=== PATIENT | male | born 1965 | race Caucasian/White ===

== ENCOUNTER 2022-01-20 18:31 | Inpatient (IN) | payer BC ==
[~2022-01-20] VITALS: Ht 175.3 cm; Wt 56.0 kg
[~2022-01-20 18:31] MED LIST: Alprazolam0.5 MG PO; DEXT5ER PO; Desyrel50 MG PO; FLUO10 PO; NUEDEXTA 20-101 EACH PO; Prozac20 MG PO; Xanax0.5 MG PO
[2022-01-20 19:07] LABS: BASOPHILS ABSOLUTE AUTO 0.01 K/mm3 (0.00-0.23); BASOPHILS PERCENT AUTO 0 % (0-2); EOSINOPHILS ABSOLUTE AUTO 0.02 K/mm3 (0.00-0.68); EOSINOPHILS PERCENT AUTO 0 % (0-6); Hematocrit 41.2 % (37.0-53.0); Hemoglobin 14.9 g/dL (13.5-17.5); IMMATURE GRAN ABSOLUTE AUTO 0.02 K/mm3 (0.00-0.10); IMMATURE GRAN PERCENT AUTO 0 % (0-1); LYMPHOCYTES ABSOLUTE AUTO 1.13 K/mm3 (0.84-5.20); LYMPHOCYTES PERCENT AUTO 20 % (21-46); MONOCYTES ABSOLUTE AUTO 0.41 K/mm3 (0.16-1.47); MONOCYTES PERCENT AUTO 7 % (4-13); Mean Corpuscular HGB 34.6 pg (26.0-34.0); Mean Corpuscular HGB Conc 36.2 g/dL (31.5-36.5); Mean Corpuscular Volume 96 fL (80-100); Mean Platelet Volume 9.9 fL (9.1-12.4); NEUTROPHILS ABSOLUTE AUTO 4.19 K/mm3 (1.96-9.15); NEUTROPHILS PERCENT AUTO 73 % (41-73); Platelet Count 241 K/mm3 (150-400); RDW Coefficient Variation 12.2 % (11.7-14.2); RDW Standard Deviation 43.7 fL (35.1-46.3); Red Blood Cell Count 4.31 M/mm3 (4.30-5.90); White Blood Cell Count 5.78 K/mm3 (4.00-11.30)
[2022-01-20 19:38] LABS: Albumin, Blood 3.9 g/dL (3.4-5.0); Albumin/Globulin Ratio 1.1 (0.8-1.8); Bilirubin, Total 0.8 mg/dL (0.1-1.0); Bun/Creatinine Ratio 7.4 (12.0-20.0); Calcium, Blood 9.2 mg/dL (8.5-10.1); Creatinine, Blood 1.22 mg/dL (0.60-1.20); Globulin, Blood 3.5 g/dL (2.2-4.0); Potassium, Blood 3.8 mmol/L (3.5-5.5); Total Protein, Blood 7.4 g/dL (6.4-8.2)
[2022-01-20 20:04] LABS: Magnesium, Blood 1.7 mg/dL (1.6-2.4)
[2022-01-20 20:09] LABS: Creatine Kinase MB 3.2 ng/mL (0.0-3.6); Thyroid Stimulating Hormone 2.84 uIU/mL (0.360-4.800)
[2022-01-20 20:16] LABS: International Normalized Ratio 1.04; Prothrombin Time Results 10.9 Sec (9.7-11.5)
--- NOTE | 2022-01-21 00:02 | NUR ---
ADMISSION: PATIENT IS RECIEVED FROM ER VIA WHEELCHAIR. PATIENT IS ORIENTED TO ROOM AND CALL REA. BP IS ELEVATED 208/111, PRN HYDRALAZINE IS GIVEN. TELI IS PLACE, NSR AT 69. WEAKNESS OF LUE AND LLE IS OBSERVED. PATIENT IS INSTRUCTED TO CALL FOR ASSIST OOB, BED ALARM IS ON.
[2022-01-21 04:34] LABS: Source, Urine Clean Catch
[2022-01-21 04:36] LABS: Bilirubin, Urine Neg (Neg); Blood, Urine Neg (Neg); Glucose Qualitative, Urine Neg (Neg); Ketones, Urine Neg (Neg); Leukocyte Esterase, Urine Neg (Neg); Nitrite, Urine Neg (Neg); Protein, Urine Neg (Neg); Urobilinogen, Urine NORM (Normal)
[2022-01-21 04:41] LABS: Appearance, Urine Clear (Clear); Color, Urine Yellow (P-Yellow)
[2022-01-21 05:46] LABS: BASOPHILS ABSOLUTE AUTO 0.02 K/mm3 (0.00-0.23); BASOPHILS PERCENT AUTO 0 % (0-2); EOSINOPHILS ABSOLUTE AUTO 0.05 K/mm3 (0.00-0.68); EOSINOPHILS PERCENT AUTO 1 % (0-6); Hematocrit 40.1 % (37.0-53.0); Hemoglobin 14.2 g/dL (13.5-17.5); IMMATURE GRAN ABSOLUTE AUTO 0.03 K/mm3 (0.00-0.10); IMMATURE GRAN PERCENT AUTO 1 % (0-1); LYMPHOCYTES ABSOLUTE AUTO 1.23 K/mm3 (0.84-5.20); LYMPHOCYTES PERCENT AUTO 25 % (21-46); MONOCYTES ABSOLUTE AUTO 0.44 K/mm3 (0.16-1.47); MONOCYTES PERCENT AUTO 9 % (4-13); Mean Corpuscular HGB Conc 35.4 g/dL (31.5-36.5); Mean Corpuscular Volume 96 fL (80-100); Mean Platelet Volume 10.3 fL (9.1-12.4); NEUTROPHILS ABSOLUTE AUTO 3.14 K/mm3 (1.96-9.15); NEUTROPHILS PERCENT AUTO 64 % (41-73); Platelet Count 238 K/mm3 (150-400); RDW Coefficient Variation 12.5 % (11.7-14.2); RDW Standard Deviation 43.8 fL (35.1-46.3); Red Blood Cell Count 4.18 M/mm3 (4.30-5.90); White Blood Cell Count 4.91 K/mm3 (4.00-11.30)
[2022-01-21 06:15] LABS: Albumin, Blood 3.3 g/dL (3.4-5.0); Albumin/Globulin Ratio 1.1 (0.8-1.8); Bilirubin, Total 0.6 mg/dL (0.1-1.0); Bun/Creatinine Ratio 11.7 (12.0-20.0); Creatinine, Blood 1.03 mg/dL (0.60-1.20); Globulin, Blood 2.9 g/dL (2.2-4.0); Potassium, Blood 3.7 mmol/L (3.5-5.5); Total Protein, Blood 6.2 g/dL (6.4-8.2)
--- NOTE | 2022-01-21 06:37 | NUR ---
SHIFT SUMMARY: PATIENT HAD GOOD EFFECT FRON PRN HYDRALAZINE GIVEN FOR BP OF 206/111. PATIENT WAS ASYMPTOMATIC. RECHECK ON BP WAS 177/101 AND 161/97. ALCOHOL WITHDRAWAL ASSESSMENT IS ZERO AND ZERO. NO EVENTS ON TELI. LEFT UPPER AND LOWERE EXT. WEAKNESS PERSISTS. UA WAS SENT PER MD ORDER.
--- NOTE | 2022-01-21 16:08 | NUR ---
SHIFT SUMMARY PATIENT IS ALERT AND ORIENTED. PATIENT IS ADMITTED FOR A STROKE AND HAS LEFT SIDED DEFICITS. PATIENT HAS NOT COMPLAINED OF SOB, NAUSEA, PAIN OR SOB THIS SHIFT. PATIENT IS PLEASENT AND COOPERATIVE WITH CARE. PATIENT HAD MULTIPLE TESTS AND THOSE ARE PENDING. NO ACUTE EVENTS THIS SHIFT. VITAL SIGNS REVIEWED. BED IN LOCKED AND LOWEST POSITION. CALL LIGHT IN PLACE.
--- NOTE | 2022-01-22 06:02 | NUR ---
SHIFT SUMMARY NO ACUTE CHANGES OVERNIGHT. PT SLEPT GOOD. VSS. DENIES CP AND SOB. ON ROOM AIR. TELE: NSR AT 67. VOIDING IN URINAL. SALINE LOCKED. TOLERATING PO INTAKE. DENIES NAUSEA AND VOMITING. PT HAS NO FACIAL DROOPING, NO NUMBNESS AND NO TINGLING SENSATION. PT HAS LUE AND LLE WEAKNESS. AOX4. COOPERATIVE WITH CARE. REPORTS VERY MILD H/A AT THE BEGINNING OF SHIFT. CALL LIGHT WITHIN REACH. WILL CONTINUE TO MONITOR AND WILL PROVIDE REPORT TO ONCOMING NURSE.
[2022-01-22] MEDS ORDERED: ASPI81CH PO (10:38)
[2022-01-22] MEDS ORDERED: ATOR40TA PO (10:39)
[2022-01-22] MEDS ORDERED: LISI20 PO (10:39)
[2022-01-22] MEDS ORDERED: PLAVIX75 MG PO (10:48)
--- NOTE | 2022-01-22 15:38 | NUR ---
DISCHARGE SUMMARY PATIENT IS ALERT AND ORIENTED. PATIENT IS PLEASENT AND COOPERATIVE WITH CARE. PATIENT WAS ADMITTED FOR A STROKE WITH LEFT SIDE WEAKNESS. PATIENT WAS READ DISCHARGE PAPERWORK AND WAS TRANSPORTED HOME BY IN PATIENTS CAR. NO ACUTE EVENTS THIS SHIFT.
== END 2022-01-22 15:15 | disposition home health service (06) | DRG 65 ==
LOC: ER 18:31 → MEDS 21:45 → ER 22:47 → MEDS 23:22
PROVIDERS: Physician Assistant; Student in an Organized Health Care Education/Training Program; ADMIT Internal Medicine
DX: I63.81 Other cerebral infarction due to occlusion or stenosis of small artery (principal); G81.92 Hemiplegia, unspecified affecting left dominant side; I16.1 Hypertensive emergency; I10 Essential (primary) hypertension; R29.702 NIHSS score 2; F17.210 Nicotine dependence, cigarettes, uncomplicated; Z79.899 Other long term (current) drug therapy
CPT/HCPCS: 36415; 70450; 70496; 70551; 80053; 81003; 82550; 82553; 83735; 84443; 85025; 85610; 93005; 93010; 93306; 93880; 97110; 97161; 97165; 97530; 97535; 99285-25; A9270; J0360; J1650; J7030; Q9967

== ENCOUNTER 2022-03-30 06:01 | Day surgery (SDC) | payer BC ==
[~2022-03-30 06:01] MED LIST changes: +ASPI81CH PO; +ATOR40TA PO; +LISI20 PO; +PLAVIX75 MG PO
--- NOTE | 2022-03-30 07:32 | NUR ---
PT AWAKE AND VERBALIZING WELL.
== END 2022-03-30 22:52 | disposition home or self-care (01) ==
LOC: MHTC 06:01
DX: I63.81 Other cerebral infarction due to occlusion or stenosis of small artery (principal); G81.94 Hemiplegia, unspecified affecting left nondominant side; I10 Essential (primary) hypertension; I48.91 Unspecified atrial fibrillation; I70.0 Atherosclerosis of aorta; Z79.82 Long term (current) use of aspirin; Z87.891 Personal history of nicotine dependence
CPT/HCPCS: 93312; 93325; A9270; J2704; J7030

== ENCOUNTER → 2022-08-14 | Outpatient (CLI) | payer BC ==
[2022-08-14 17:14] LABS: Albumin, Blood 4.3 g/dL (3.4-5.0); Albumin/Globulin Ratio 1.3 (0.8-1.8); Bilirubin, Total 1.4 mg/dL (0.1-1.0); Bun/Creatinine Ratio 11.1 (12.0-20.0); Calcium, Blood 9.6 mg/dL (8.5-10.1); Creatinine, Blood 0.99 mg/dL (0.60-1.20); Globulin, Blood 3.3 g/dL (2.2-4.0); Potassium, Blood 4.3 mmol/L (3.5-5.5); Total Protein, Blood 7.6 g/dL (6.4-8.2)
== END | disposition home or self-care (01) ==
LOC: LAB 14:34 → LAB SHORT 14:34
PROVIDERS: Student in an Organized Health Care Education/Training Program
DX: Z01.30 Encounter for examination of blood pressure without abnormal findings (principal); I63.9 Cerebral infarction, unspecified
CPT/HCPCS: 80053

== ENCOUNTER → 2022-10-23 | Outpatient (CLI) | payer BC ==
[2022-10-23 17:51] LABS: Bun/Creatinine Ratio 14.4 (12.0-20.0); Calcium, Blood 9.7 mg/dL (8.5-10.1); Creatinine, Blood 0.97 mg/dL (0.60-1.20); Potassium, Blood 4.6 mmol/L (3.5-5.5); Thyroid Stimulating Hormone 0.906 uIU/mL (0.360-4.800)
[2022-10-23 21:59] LABS: Osmolality, Urine 324 mos/kg (15-1400)
[2022-10-23 22:11] LABS: Sodium, Urine, Random 53 mmol/L (20-110)
== END | disposition home or self-care (01) ==
LOC: LAB 15:41 → LAB SHORT 15:41
PROVIDERS: Student in an Organized Health Care Education/Training Program
DX: E87.1 Hypo-osmolality and hyponatremia (principal)
CPT/HCPCS: 80048; 83880; 83935; 84300; 84443

== ENCOUNTER → 2022-10-30 | Outpatient (CLI) | payer BC ==
[2022-10-30 17:58] LABS: Bun/Creatinine Ratio 8.4 (12.0-20.0); Calcium, Blood 9.5 mg/dL (8.5-10.1); Creatinine, Blood 1.07 mg/dL (0.60-1.20); Potassium, Blood 4.4 mmol/L (3.5-5.5)
== END | disposition home or self-care (01) ==
LOC: LAB SHORT 15:43 → LAB 15:43
PROVIDERS: Student in an Organized Health Care Education/Training Program
DX: E87.1 Hypo-osmolality and hyponatremia (principal)
CPT/HCPCS: 80048; 83930; 84133

== ENCOUNTER → 2023-02-26 | Outpatient (CLI) | payer BC ==
[2023-02-26 20:13] LABS: CHOL/HDL RATIO 1.5; Cholesterol 150 mg/dL (50-200); HDL Cholesterol 100 mg/dL (>39); LDL/HDL RATIO 0.4; Low Density Lipoprotein Chol 36 mg/dL (0-110); Triglycerides 68 mg/dL (30-160); Very Low Density Lipoprot Chol 13 mg/dL (6-32)
== END | disposition home or self-care (01) ==
LOC: LAB SHORT 17:41 → LAB 17:41
PROVIDERS: Family Medicine
DX: I63.9 Cerebral infarction, unspecified (principal)
CPT/HCPCS: 80061

== ENCOUNTER 2024-03-28 08:00 | Inpatient (IN) | payer BC ==
[~2024-03-28] VITALS: Ht 172.7 cm; Wt 53.7 kg
[2024-03-28] VITALS (15 sets, daily range): BP systolic 114–125; BP diastolic 80–95
[2024-03-28 08:21] LABS: BASOPHILS ABSOLUTE AUTO 0.01 K/mm3 (0.00-0.23); BASOPHILS PERCENT AUTO 0 % (0-2); EOSINOPHILS ABSOLUTE AUTO 0.01 K/mm3 (0.00-0.68); EOSINOPHILS PERCENT AUTO 0 % (0-6); Hematocrit 28.3 % (37.0-53.0); IMMATURE GRAN ABSOLUTE AUTO 0.01 K/mm3 (0.00-0.10); IMMATURE GRAN PERCENT AUTO 0 % (0-1); LYMPHOCYTES ABSOLUTE AUTO 0.39 K/mm3 (0.84-5.20); LYMPHOCYTES PERCENT AUTO 7 % (21-46); MONOCYTES PERCENT AUTO 2 % (4-13); Mean Corpuscular HGB 36.4 pg (26.0-34.0); Mean Corpuscular HGB Conc 35.3 g/dL (31.5-36.5); Mean Corpuscular Volume 103 fL (80-100); Mean Platelet Volume 9.7 fL (9.1-12.4); NEUTROPHILS ABSOLUTE AUTO 4.83 K/mm3 (1.96-9.15); NEUTROPHILS PERCENT AUTO 90 % (41-73); Platelet Count 285 K/mm3 (150-400); RDW Coefficient Variation 12.2 % (11.7-14.2); RDW Standard Deviation 45.7 fL (35.1-46.3); Red Blood Cell Count 2.75 M/mm3 (4.30-5.90); White Blood Cell Count 5.35 K/mm3 (4.00-11.30)
[2024-03-28 08:34] LABS: Albumin, Blood 2.9 g/dL (3.4-5.0); Albumin/Globulin Ratio 1.1 (0.8-1.8); Bilirubin, Total 0.8 mg/dL (0.1-1.0); Bun/Creatinine Ratio 10.2 (12.0-20.0); Calcium, Blood 7.6 mg/dL (8.5-10.1); Creatinine, Blood 1.28 mg/dL (0.60-1.20); Globulin, Blood 2.6 g/dL (2.2-4.0); Potassium, Blood 3.1 mmol/L (3.5-5.5); Total Protein, Blood 5.5 g/dL (6.4-8.2)
[2024-03-28] MEDS ORDERED: Piperacillin/Tazobactam Sod 3.375 GM in NS 100 ML IV ONE ×2 (09:40→12:55)
[2024-03-28 09:46] LABS: Source, Urine Voided
[2024-03-28 10:05] LABS: Bilirubin, Urine Neg (Neg); Blood, Urine Neg (Neg); Glucose Qualitative, Urine Neg (Neg); Ketones, Urine 1+ (Neg); Leukocyte Esterase, Urine Neg (Neg); Nitrite, Urine Neg (Neg); Protein, Urine 2+ (Neg); Specific Gravity, Urine 1.015 (1.003-1.022); Urobilinogen, Urine NORM (Normal)
[2024-03-28] MEDS ORDERED: Morphine Sulfate 4 MG/1 ML Injection IV ONE (10:05)
[2024-03-28] MEDS ORDERED: Ondansetron HCl 2 MG / ML 2ML Vial IV ONE (10:05)
[2024-03-28] MEDS ORDERED: Lactated Ringer's 1,000 ML IV SCH ×2 (10:15→14:20)
[2024-03-28 10:22] LABS: Appearance, Urine Clear (Clear); Color, Urine Yellow (P-Yellow)
[2024-03-28 10:24] LABS: Bacteria Rare /hpf; Red Blood Cells, Urine 0-2 /hpf (0-2); Squamous Epithelial Cells Rare /hpf (Few); White Blood Cells, Urine 0-2 /hpf (0-5)
[2024-03-28] MEDS ORDERED: FLU VACC TS2024-25(6MOS UP)/PF 45 MCG/0.5 ML SYRINGE IM SCH (10:30)
[2024-03-28] MEDS ORDERED: FentaNYL Citrate 50 MCG/ML 2 ML Injection ONE (10:34)
[2024-03-28] MEDS ORDERED: Ondansetron HCl 2 MG / ML 2ML Vial IV PRN (10:35)
[2024-03-28] MEDS ORDERED: Dexamethasone Sod Phos 10 MG/ML 1ML VIAL ONE (10:36)
[2024-03-28] MEDS ORDERED: Rocuronium Bromide 10 MG/ML 5ML Injection IV ONE ×2 (10:36→13:21)
[2024-03-28] MEDS ORDERED: Ondansetron HCl 2 MG / ML 2ML Vial ONE (10:36)
[2024-03-28] MEDS ORDERED: NS 1,000 ML IV SCH (11:00)
--- NOTE | 2024-03-28 11:53 | NUR ---
History, Chart, Medications and Allergies reviewed before start of procedure. Pre-Op teaching done. Pt verbalizes understanding. PT STATES HE HAS BEEN NPO SINCE 03/27 AT 2230. 2ND IV PLACED BY THIS RN PER DR. GUERRERO REQUEST. PINK TOP X2 DRAWN AND SENT TO LAB FOR BOTH T&S AND T&C.
--- NOTE | 2024-03-28 11:55 | NUR ---
PT DOES NOT HAVE ANY BELONGINGS ON [facility]. ALL BELONGINGS WERE GIVEN TO DAUGHTER AT BS.
--- NOTE | 2024-03-28 12:12 | NUR ---
SURGEON AND ANES AWARE OF K+ LEVEL. NO ORDERS GIVEN AT THIS TIME.
[2024-03-28] MEDS ORDERED: Midazolam HCl 1MG / ML 2ML Vial ONE (12:13)
[2024-03-28] MEDS ORDERED: Etomidate 2MG / ML 10ML Vial ONE (12:14)
[2024-03-28] MEDS ORDERED: propofoL 20 ML IV ONE (12:15)
[2024-03-28] MEDS ORDERED: ePHEDrine Sulfate 50 MG/ML 1ML Injection ONE (12:46)
--- NOTE | 2024-03-28 13:09 | NUR ---
03/28/24 1309 Jacinta Cisse RECTUS BLOCK PERFORMED BY DR. BARKSDALE PRIOR TO PROCEDURE.
[2024-03-28] MEDS ORDERED: Sugammadex Sodium 200 MG/2ML SDV (100 MG/ML) ONE (13:24)
[2024-03-28] MEDS ORDERED: Bupivacaine 0.5% Inj 10 ML Vial ONE (13:51)
[2024-03-28] MEDS ORDERED: Pantoprazole Sodium 40 MG in NS 50 ML IV SCH (13:55)
[2024-03-28] MEDS ORDERED: Pantoprazole Sodium 40 MG Injection IV ONE (13:55)
[2024-03-28] MEDS ORDERED: ChlordiazePOXIDE 25 MG Cap PO PRN (14:50)
[2024-03-28] MEDS ORDERED: LORazepam 2 MG/ML 1ML Injection IV PRN (14:50)
--- NOTE | 2024-03-28 15:30 | NUR ---
PT ARRIVED TO THE ROOM FROM PACU AT APPROXIMATELY 1515. PT DROWSY BUT WAKES WHEN SPOKEN TO AND IS ABLE TO MOVE ALL EXTREMITIES. PT PROVIDED WITH CALL LIGHT AND EDUCATED TO USE. PT'S FAMILY IS AT THE BEDSIDE FOR SUPPORT. LULI DRESSING PRESENT TO MIDLINE INCISION, FUNCTIONING PROPERLY. CONSUELO DRAIN TO BULB SUCTION WITH SEROSANGUINOUS DRAINAGE OUT.
[2024-03-28] MEDS ORDERED: FentaNYL Citrate 50 MCG/ML 2 ML Injection IV PRN (15:40)
[2024-03-28] MEDS ORDERED: Potassium Chl 20MEQ/Water100ML 100 ML IV SCH (15:55)
[2024-03-28] MEDS ORDERED: Piperacillin/Tazobactam Sod 3.375 GM in NS 100 ML IV SCH ×2 (16:00→20:00)
[2024-03-28] MEDS ORDERED: NS 250 ML IV PRN (16:10)
--- NOTE | 2024-03-28 18:13 | NUR ---
SHIFT SUMMARY PT IS POD#0. PAIN HAS BEEN MANAGED WITH REST. PAIN DOES INCREASE SOME WITH MOVEMENT BUT PT HAS BEEN VERY DROWSY POST OP. PT ON CONTINUOUS PULSE OX, HE REMAINS ON RA, RESP RATE/EFFORT EVEN AND UNLABORED. PT WAKES AND RESPONDS APPROPRIATELY WHEN SPOKEN TO. PT HAD CRITICAL HIGH LACTIC, DR RUIZ NOTIFIED. CALL LIGHT WITHIN REACH.
[2024-03-28] MEDS ORDERED: Lactobacil 2-S.Thermo-Bifido 1 1 Cap PO SCH (21:00)
--- NOTE | 2024-03-29 04:34 | NUR ---
SHIFT SUMMARY POD 1 EX LAP PT ABLE TO REST T/O SHIFT. PAIN MANAGED PER EMAR. PT REMAINS NPO AFTER SURGERY, VOIDING. LULI DRESSING TO MIDLINE IS C/D/I. CONSUELO DRAIN TO LLQ DRAINING SS FLUID. PT REPORTS NOT PASSING ANY GAS AT THIS TIME, STATES HE IS BURPING SOME. PT HAS NOT BEEN OOB YET. VSS. NO OTHER CONCERNS AT THIS TIME, CALL LIGHT WITHIN REACH.
[2024-03-29 04:40] VITALS: BP 116/80
[2024-03-29 05:04] LABS: BASOPHILS ABSOLUTE AUTO 0.04 K/mm3 (0.00-0.23); BASOPHILS PERCENT AUTO 0 % (0-2); EOSINOPHILS PERCENT AUTO 0 % (0-6); Hematocrit 33.8 % (37.0-53.0); Hemoglobin 12.1 g/dL (13.5-17.5); IMMATURE GRAN ABSOLUTE AUTO 0.14 K/mm3 (0.00-0.10); IMMATURE GRAN PERCENT AUTO 1 % (0-1); LYMPHOCYTES ABSOLUTE AUTO 0.45 K/mm3 (0.84-5.20); LYMPHOCYTES PERCENT AUTO 3 % (21-46); MONOCYTES PERCENT AUTO 3 % (4-13); Mean Corpuscular HGB 36.2 pg (26.0-34.0); Mean Corpuscular HGB Conc 35.8 g/dL (31.5-36.5); Mean Corpuscular Volume 101 fL (80-100); Mean Platelet Volume 9.7 fL (9.1-12.4); NEUTROPHILS ABSOLUTE AUTO 15.46 K/mm3 (1.96-9.15); NEUTROPHILS PERCENT AUTO 93 % (41-73); Platelet Count 301 K/mm3 (150-400); RDW Coefficient Variation 12.5 % (11.7-14.2); RDW Standard Deviation 47.1 fL (35.1-46.3); Red Blood Cell Count 3.34 M/mm3 (4.30-5.90); White Blood Cell Count 16.59 K/mm3 (4.00-11.30)
[2024-03-29 06:13] LABS: Albumin, Blood 2.3 g/dL (3.4-5.0); Albumin/Globulin Ratio 0.7 (0.8-1.8); Bilirubin, Total 1.2 mg/dL (0.1-1.0); Bun/Creatinine Ratio 12.8 (12.0-20.0); Calcium, Blood 8.3 mg/dL (8.5-10.1); Creatinine, Blood 1.25 mg/dL (0.60-1.20); Globulin, Blood 3.2 g/dL (2.2-4.0); Potassium, Blood 5.3 mmol/L (3.5-5.5); Total Protein, Blood 5.5 g/dL (6.4-8.2)
[2024-03-29 08:03] VITALS: BP 112/75
[2024-03-29] MEDS ORDERED: Atorvastatin 40 MG Tab PO SCH (09:00)
[2024-03-29] MEDS ORDERED: Aspirin 81 MG Chew PO SCH (09:00)
[2024-03-29] MEDS ORDERED: Multivitamins 1 Tab PO SCH (09:00)
[2024-03-29] MEDS ORDERED: Lisinopril 20 MG Tab PO SCH (09:00)
[2024-03-29] MEDS ORDERED: Folic Acid 1 MG TAB PO SCH (09:00)
[2024-03-29] MEDS ORDERED: Thiamine HCl 100 MG Tab PO SCH (09:00)
[2024-03-29 14:46] VITALS: BP 107/75
[2024-03-29] MEDS ORDERED: Pantoprazole Sodium 40 MG Injection IV SCH (16:30)
--- NOTE | 2024-03-29 18:47 | NUR ---
SUMMARY: PT IS POD1 EX LAP WITH PERF ULCER REPAIR. A/O, VSS. SURGICAL SITE WNL. PT MEDICATED FOR PAIN PRN. PT ABLE TO AMBULATE IN ROOM AND SAT UP IN CHAIR. PROTONIX DRIP DC'D AND PT RECEIVING IV PUSH PROTONIX. CONTINUE NPO UNTIL TOMORROW. NO ACUTE SAFETY CONCERNS, PT USING CALL LIGHT
[2024-03-29 19:32] VITALS: BP 135/79
[2024-03-30] VITALS (22 sets, daily range): BP systolic 131–164; BP diastolic 83–110
--- NOTE | 2024-03-30 05:21 | NUR ---
SHIFT SUMMARY POD 2 EX LAP W/ GRAHM PATCH PT RESTED DURING THE NIGHT. PAIN MANAGED PER EMAR. PT REMAINS NPO. PT WILL BE GETTING UPPER SCOPE DONE TODAY. LULI DRESSING TO MIDLINE C/D/I. CONSUELO OUTPUTTING SS FLUID. PT REPORTS NOT HAVING ANY GAS. VOIDING WELL. VSS. NO OTHER CONCERNS AT THIS TIME, CALL LIGHT WITHIN REACH
[2024-03-30 05:39] LABS: Hematocrit 29.8 % (37.0-53.0); Hemoglobin 10.6 g/dL (13.5-17.5); Mean Corpuscular HGB 35.8 pg (26.0-34.0); Mean Corpuscular HGB Conc 35.6 g/dL (31.5-36.5); Mean Corpuscular Volume 101 fL (80-100); Mean Platelet Volume 9.6 fL (9.1-12.4); Platelet Count 241 K/mm3 (150-400); RDW Coefficient Variation 12.3 % (11.7-14.2); RDW Standard Deviation 45.1 fL (35.1-46.3); Red Blood Cell Count 2.96 M/mm3 (4.30-5.90); White Blood Cell Count 11.17 K/mm3 (4.00-11.30)
[2024-03-30 07:10] LABS: Bun/Creatinine Ratio 12.9 (12.0-20.0); Calcium, Blood 9.4 mg/dL (8.5-10.1); Creatinine, Blood 1.16 mg/dL (0.60-1.20); Potassium, Blood 4.4 mmol/L (3.5-5.5)
[2024-03-30] MEDS ORDERED: Aspirin 81 MG Chew PO SCH (16:00)
--- NOTE | 2024-03-30 16:00 | NUR ---
TRACKMAN ATTEMPTED TO ASSIST PT W/ AMBULATING, TRACKMAN REPORTED TO THIS NURSE THAT PT SUDDENLY FELT WEAK, DIZZY, AND NAUSEOUS. PT ASSISTED BACK TO BED. O2 SATS 82-86% AT THIS TIME ON RA, CONT BIOX IN PLACE. PLACED PT ON 3L OF O2 W/ NO CHANGE IN O2 SATS, INCREASED TO 4L, O2 SATS 92%. PT NOW MAINTAINING 92% ON 3L NC AND COMPLAINING OF SOB BUT DENIES CHEST PAIN. PT STATES HE FEELS LIKE HE "CANNOT TAKE A DEEP BREATH". NOTIFIED DR. MARCOS OF CHANGE IN PT STATUS, DR. MARCOS TO COME SEE PT AND PUT IN ORDERS. PT INSTRUCTED TO CALL W/ ANY CHANGES.
[2024-03-30] MEDS ORDERED: Lactated Ringer's 500 ML IV ONE (16:55)
--- NOTE | 2024-03-30 16:55 | NUR ---
DR. MARCOS ARRIVED AT BEDSIDE TO ASSESS PT, ORDER RECIEVED FOR LR BOLUS AND DR TO PUT IN ORDER FOR CHEST CT.
[2024-03-30 17:28] LABS: BASOPHILS ABSOLUTE AUTO 0.02 K/mm3 (0.00-0.23); BASOPHILS PERCENT AUTO 0 % (0-2); EOSINOPHILS ABSOLUTE AUTO 0.01 K/mm3 (0.00-0.68); EOSINOPHILS PERCENT AUTO 0 % (0-6); Hematocrit 40.4 % (37.0-53.0); Hemoglobin 14.6 g/dL (13.5-17.5); IMMATURE GRAN ABSOLUTE AUTO 0.11 K/mm3 (0.00-0.10); IMMATURE GRAN PERCENT AUTO 1 % (0-1); LYMPHOCYTES ABSOLUTE AUTO 0.74 K/mm3 (0.84-5.20); LYMPHOCYTES PERCENT AUTO 4 % (21-46); MONOCYTES PERCENT AUTO 4 % (4-13); Mean Corpuscular HGB 35.6 pg (26.0-34.0); Mean Corpuscular HGB Conc 36.1 g/dL (31.5-36.5); Mean Corpuscular Volume 99 fL (80-100); Mean Platelet Volume 9.7 fL (9.1-12.4); NEUTROPHILS ABSOLUTE AUTO 17.89 K/mm3 (1.96-9.15); NEUTROPHILS PERCENT AUTO 92 % (41-73); Platelet Count 363 K/mm3 (150-400); RDW Coefficient Variation 12.2 % (11.7-14.2); White Blood Cell Count 19.47 K/mm3 (4.00-11.30)
--- NOTE | 2024-03-30 18:30 | NUR ---
CALL RECIEVED FROM [employer] NOTIFYING THIS RN THAT [address] [facility] ASSOCIATE ENTERTAINMENT EDITOR INFORMED, WHILE I ASSESSED PT FOR CHEST PAIN AND PRESSURE. PT DENIES CHEST PAIN BUT DOES REPORT SOME CHEST PRESSURE. VITAL SIGNS TAKEN AT THIS TIME, BLOOD PRESSURE ELEVATED W/ SYSTOLIC IN THE 150'S AND DIASTOLIC IN THE LOW 100'S, PT TACHY W/ HR OF 100-110. O2 SATS 70-8O%, NRB 15L APPLIED, 02 SATS NOW 92-99%. PT IS FULLY RESPONSIVE. EKG TAKEN WHICH SHOWED ST ELEVATION. CHARGE NURSE NOTIFIED DR. MARCOS WHO CONTACTED DR. SHERIFF TO TAKE OVER CARE OF PT. DR. SHERIFF AT BEDSIDE, PT BEGAN THROWING UP GREEN BILE. REFER TO EMAR FOR MEDICATIONS GIVEN AND ORDERS RECIEVED AT THIS TIME. VITALS TAKEN INTERMITTENTLY W/ PT REMAINING HYPERTENSIVE. PT TRANSFERED TO EDGING SUPERVISOR W/ FAMILY MEMBERS AT BEDSIDE.
[2024-03-30] MEDS ORDERED: Lactated Ringer's 1,000 ML IV SCH (18:40)
--- NOTE | 2024-03-30 18:41 | NUR ---
TELE CALLED AND REPORTED ST E[facility]. PRIMARY RN IN ROOM TO ASSESS PT AND OBTAIN VS. THIS RN CONTACTED DR. MARCOS AND OBTAINED AN EKG. DR. MARCOS NOTIFIED OF PT SYMPTOMS AND THAT EKG WAS COMPLETE. DR. MARCOS REPORTED HE WOULD CALL DR. SHERIFF TO COME ASSESS PT AT BEDSIDE.
[2024-03-30] MEDS ORDERED: Aspirin 325 MG Tab PO ONE (19:05)
[2024-03-30] MEDS ORDERED: Heparin Sodium 5000 Units/ML 1ML MDV IV ONE (19:05)
[2024-03-30] MEDS ORDERED: Heparin Sodium 1000 Units/ML 10ML MDV ONE ×2 (19:16→19:20)
[2024-03-30] MEDS ORDERED: Verapamil HCL 2.5 MG/ML 2ML Injection ONE (19:16)
[2024-03-30] MEDS ORDERED: Nitroglycerin 2 MG/20 ML BTL ONE (19:17)
[2024-03-30] MEDS ORDERED: NS 250 ML IV ONE (19:17)
[2024-03-30] MEDS ORDERED: NS 1,000 ML IV ONE ×2 (19:17→19:20)
[2024-03-30] MEDS ORDERED: FentaNYL Citrate 50 MCG/ML 2 ML Injection ONE (19:20)
[2024-03-30] MEDS ORDERED: Midazolam HCl 1MG / ML 2ML Vial ONE (19:20)
--- NOTE | 2024-03-30 19:33 | NUR ---
PT TO AVIATION PROJECT ENGINEER AT THIS TIME
[2024-03-30 19:38] LABS: Anti-Xa UFH, PHA Monitoring <0.10 IU/mL; International Normalized Ratio 0.96; Prothrombin Time Results 10.3 Sec (9.7-11.5)
--- NOTE | 2024-03-30 20:29 | NUR ---
SHIFT SUMMARY PT IS POD2 FOR EX LAP R/T PERF ULCER. ASSUMED CARE OF PT AT 1430 AFTER RECIEVING REPORT FROM FAMILIA LOMBARDI. SHORTLY AFTER RECIEVING REPORT, AIR QUALITY SPECIALIST ATTEMPTED TO AMBULATE PT, SEE NOTE. CONSUELO DRAIN DRAINING SS FLUID, MILDINE LULI C/D/I BESIDES TWO SCANT SPOTS OF DRAINAGE ON DRESSING. PT WAS NOT TOLERATING PO CL DIET, NAUSEOUS, MEDICATED PER EMAR. PT ALSO MEDICATED FOR PAIN W/ IV FENTANYL PER EMAR. PT STATING HE "DOES NOT FEEL GOOD" OVERALL, PT REQUIRING 3LNC TO MAINTAIN SATS >90% AFTER BEING ON RA PRIOR. SEE OTHER NOTES REGARDING CARDIAC EVENT. PT TRANSFERED TO PRODUCTION DESIGNER, REPORT GIVEN TO SUPERVISOR SEAMING.
[2024-03-31] VITALS (20 sets, daily range): BP systolic 152–168; BP diastolic 96–119
[2024-03-31 03:24] LABS: BASOPHILS ABSOLUTE AUTO 0.02 K/mm3 (0.00-0.23); BASOPHILS PERCENT AUTO 0 % (0-2); EOSINOPHILS ABSOLUTE AUTO 0.01 K/mm3 (0.00-0.68); EOSINOPHILS PERCENT AUTO 0 % (0-6); Hematocrit 40.5 % (37.0-53.0); Hemoglobin 14.8 g/dL (13.5-17.5); IMMATURE GRAN PERCENT AUTO 1 % (0-1); LYMPHOCYTES ABSOLUTE AUTO 0.55 K/mm3 (0.84-5.20); LYMPHOCYTES PERCENT AUTO 3 % (21-46); MONOCYTES ABSOLUTE AUTO 0.65 K/mm3 (0.16-1.47); MONOCYTES PERCENT AUTO 4 % (4-13); Mean Corpuscular HGB 35.7 pg (26.0-34.0); Mean Corpuscular HGB Conc 36.5 g/dL (31.5-36.5); Mean Corpuscular Volume 98 fL (80-100); Mean Platelet Volume 9.4 fL (9.1-12.4); NEUTROPHILS ABSOLUTE AUTO 15.21 K/mm3 (1.96-9.15); NEUTROPHILS PERCENT AUTO 92 % (41-73); Platelet Count 381 K/mm3 (150-400); RDW Coefficient Variation 12.1 % (11.7-14.2); RDW Standard Deviation 43.9 fL (35.1-46.3); Red Blood Cell Count 4.14 M/mm3 (4.30-5.90); White Blood Cell Count 16.54 K/mm3 (4.00-11.30)
[2024-03-31] MEDS ORDERED: Metoclopramide HCl 5MG / ML 2ML Vial IV ONE (03:30)
[2024-03-31 03:52] LABS: Albumin, Blood 2.6 g/dL (3.4-5.0); Albumin/Globulin Ratio 0.6 (0.8-1.8); Bilirubin, Total 0.9 mg/dL (0.1-1.0); Bun/Creatinine Ratio 18.9 (12.0-20.0); Calcium, Blood 9.5 mg/dL (8.5-10.1); Creatinine, Blood 0.95 mg/dL (0.60-1.20); Globulin, Blood 4.1 g/dL (2.2-4.0); Potassium, Blood 3.8 mmol/L (3.5-5.5); Total Protein, Blood 6.7 g/dL (6.4-8.2)
--- NOTE | 2024-03-31 04:13 | NUR ---
SHIFT SUMMARY RECEIVED PT FROM TRANSFER KNITTER AT 2024 VIA BED, PT AWAKE AND ALERT ORIENTED X4, FOLLOWS COMMANDS, O2 AT 3LPM NC, DECREASED TO 2 LPM AT THIS TIME, SR-ST 90-108 BPM, SBP 150-160S, DBP 100-110S, TR BAND TO RIGHT RADIAL IN PLACE , 1 -2 ML REMOVED EVERY 15 MIN UNTIL 0ML, NO BLEEDING, BRUISING OR HEMATOMA NOTED, TR BAND REMOVED AT 0300 AND 2X2 PLACED OVER INSERTION SITE AND COVERED WITH SMALL TEGADERM. PT VOIDS CHLOE URINE WITHOUT DIFFICULTY IN URINAL. PT NAUSEATED AND VOMITING SMALL AMOUNT OF CLEAR BILE IN EMESIS BAG. MEDICATED WITH ZOFRAN IVP PER PRN ORDERS X1 AND ONE TIME DOSE OF REGLAN 10 MG. FENTANYL GIVEN X1 PER PT C/O PAIN, TOLERATED WELL
--- NOTE | 2024-03-31 04:56 | NUR ---
PT TRANSFERED FROM ICU TO PCU. PT DENIES ANY PAIN. PT CURRENT CIWA 0. PT RESTING COMFORTABLY ON 2L NC. PT AOX4 WITH CALL LIGHT.
--- NOTE | 2024-03-31 06:15 | NUR ---
PT STATES HE CAN CALL HIS FAMILY TO NOTIFY THEM THAT HE MOVED ROOMS.
[2024-03-31] MEDS ORDERED: Atorvastatin 40 MG Tab PO SCH (09:00)
[2024-03-31] MEDS ORDERED: Lisinopril 20 MG Tab PO SCH (09:00)
[2024-03-31] MEDS ORDERED: HYDROcodone 5-APAP 325 TAB PO PRN (16:00)
[2024-03-31] MEDS ORDERED: Piperacillin/Tazobactam Sod 3.375 GM in NS 100 ML IV SCH (16:00)
[2024-03-31] MEDS ORDERED: Lactated Ringer's 1,000 ML IV SCH (16:00)
--- NOTE | 2024-03-31 18:55 | NUR ---
LULI DRESSING IS CLEAN AND INTACT WITH SMALL AMOUNT OF DRAINAGE NOTED TO DRESSING. HE IS ALERT ANSWERING QUESTIONS APPROPRIATELY. DENIES CP OR SOB. HE REMAINS ON 2L O2 VIA NASAL CANNULA. VSS. PT CHANGED TO CLEAR LIQUID DIET FURING THIS SIHIFT.
--- NOTE | 2024-03-31 19:34 | NUR ---
ASSUMPTION OF CARE NOTE ASSUMED CARE OF PT AT 1900. PT ALERT AND ORIENTED x4. DENIES PAIN. TACHY HR @ 100'S. HTN W/ BP OF 159/102. SPO2 94% ON 1L VIA NC. ABD SURGICAL DRESSINGS AND CONSUELO DRAIN ARE INTACT. SCANT DRAINAGE PRESENT ON MIDLINE ABD DRESSING.
[2024-03-31] MEDS ORDERED: HydrALAZINE HCl 20 MG / ML 1ML Vial IV ONE (21:05)
[2024-04-01 01:58] VITALS: BP 162/95
[2024-04-01 03:39] VITALS: BP 152/103
[2024-04-01 05:28] LABS: BASOPHILS ABSOLUTE AUTO 0.02 K/mm3 (0.00-0.23); BASOPHILS PERCENT AUTO 0 % (0-2); EOSINOPHILS ABSOLUTE AUTO 0.01 K/mm3 (0.00-0.68); EOSINOPHILS PERCENT AUTO 0 % (0-6); Hematocrit 38.1 % (37.0-53.0); Hemoglobin 13.7 g/dL (13.5-17.5); IMMATURE GRAN ABSOLUTE AUTO 0.14 K/mm3 (0.00-0.10); IMMATURE GRAN PERCENT AUTO 1 % (0-1); LYMPHOCYTES ABSOLUTE AUTO 0.67 K/mm3 (0.84-5.20); LYMPHOCYTES PERCENT AUTO 4 % (21-46); MONOCYTES ABSOLUTE AUTO 1.01 K/mm3 (0.16-1.47); MONOCYTES PERCENT AUTO 6 % (4-13); Mean Corpuscular HGB 35.7 pg (26.0-34.0); Mean Corpuscular Volume 99 fL (80-100); Mean Platelet Volume 9.4 fL (9.1-12.4); NEUTROPHILS ABSOLUTE AUTO 14.03 K/mm3 (1.96-9.15); NEUTROPHILS PERCENT AUTO 88 % (41-73); Platelet Count 352 K/mm3 (150-400); Red Blood Cell Count 3.84 M/mm3 (4.30-5.90); White Blood Cell Count 15.88 K/mm3 (4.00-11.30)
[2024-04-01 05:58] LABS: Albumin, Blood 2.4 g/dL (3.4-5.0); Albumin/Globulin Ratio 0.6 (0.8-1.8); Bilirubin, Total 0.9 mg/dL (0.1-1.0); Bun/Creatinine Ratio 19.4 (12.0-20.0); Creatinine, Blood 0.78 mg/dL (0.60-1.20); Globulin, Blood 3.7 g/dL (2.2-4.0); Potassium, Blood 3.1 mmol/L (3.5-5.5); Total Protein, Blood 6.1 g/dL (6.4-8.2)
[2024-04-01] MEDS ORDERED: Potassium Chloride 20 MEQ TabCR PO ONE (08:00)
[2024-04-01 09:25] VITALS: BP 161/100
[2024-04-01] MEDS ORDERED: Magnesium Oxide 400 MG Tab PO ONE (12:00)
--- NOTE | 2024-04-01 18:18 | NUR ---
PT IS A/O X4. HE HAS BEEN RESTING WELL IN BED T/O THE DAY. HE WAS UP AND WALKING AROUND THE UNIT WITH PHYSICAL. HE DENIES CP OR SOB. VSS. HE ABLE TO MAKE NEEDS KNOWN AND USE CALL LIGHT APPROPRIATELY. FAMILY HAS BEEN IN TO SEE PT AND SHE WAS ALSO UPDATED ON STATUS. ANGIO SITE REMAINS WELL RECOVERERD WITH NO BLEEDING NOTED. VSS. NADN.
[2024-04-01 19:40] VITALS: BP 155/99
--- NOTE | 2024-04-01 19:47 | NUR ---
ASSUMPTION OF CARE PT ALERT AND ORIENTED. ENDORSES PAIN BUT REFUSES PAIN MEDS AT THIS TIME HE WOULD LIKE TO WAIT UNTIL CLOSER TO BEDTIME. HTN NOTED WITH BP 155/99. HR 91. SPO2 95% ON RA. DENIES CHEST PAIN/PRESSURE, PALPITATIONS, DIZZINESS. LOWGRADE FEVER. SURGICAL DSGS INTACT WITH SCANT DRY DRAINAGE.
[2024-04-02 03:33] VITALS: BP 148/91
[2024-04-02 04:24] LABS: BASOPHILS ABSOLUTE AUTO 0.02 K/mm3 (0.00-0.23); BASOPHILS PERCENT AUTO 0 % (0-2); EOSINOPHILS ABSOLUTE AUTO 0.14 K/mm3 (0.00-0.68); EOSINOPHILS PERCENT AUTO 1 % (0-6); Hematocrit 34.1 % (37.0-53.0); Hemoglobin 12.5 g/dL (13.5-17.5); IMMATURE GRAN ABSOLUTE AUTO 0.05 K/mm3 (0.00-0.10); IMMATURE GRAN PERCENT AUTO 1 % (0-1); LYMPHOCYTES ABSOLUTE AUTO 1.01 K/mm3 (0.84-5.20); LYMPHOCYTES PERCENT AUTO 10 % (21-46); MONOCYTES ABSOLUTE AUTO 1.15 K/mm3 (0.16-1.47); MONOCYTES PERCENT AUTO 11 % (4-13); Mean Corpuscular HGB 35.4 pg (26.0-34.0); Mean Corpuscular HGB Conc 36.7 g/dL (31.5-36.5); Mean Corpuscular Volume 97 fL (80-100); Mean Platelet Volume 9.7 fL (9.1-12.4); NEUTROPHILS PERCENT AUTO 77 % (41-73); Platelet Count 293 K/mm3 (150-400); RDW Coefficient Variation 11.9 % (11.7-14.2); RDW Standard Deviation 41.4 fL (35.1-46.3); Red Blood Cell Count 3.53 M/mm3 (4.30-5.90); White Blood Cell Count 10.27 K/mm3 (4.00-11.30)
[2024-04-02 04:51] LABS: Albumin, Blood 2.2 g/dL (3.4-5.0); Albumin/Globulin Ratio 0.6 (0.8-1.8); Bilirubin, Total 0.8 mg/dL (0.1-1.0); Bun/Creatinine Ratio 15.2 (12.0-20.0); Calcium, Blood 8.8 mg/dL (8.5-10.1); Creatinine, Blood 0.79 mg/dL (0.60-1.20); Globulin, Blood 3.4 g/dL (2.2-4.0); Potassium, Blood 3.1 mmol/L (3.5-5.5); Total Protein, Blood 5.6 g/dL (6.4-8.2)
[2024-04-02] MEDS ORDERED: Potassium Chloride 20 MEQ TabCR PO ONE (09:00)
[2024-04-02] MEDS ORDERED: Metoprolol Succinate 50 MG TABCR PO SCH (09:00)
[2024-04-02 09:58] VITALS: BP 148/99
[2024-04-02] MEDS ORDERED: Metoprolol Succinate 50 MG TABCR PO ONE (13:00)
--- NOTE | 2024-04-02 13:00 | NUR ---
IVs REMOVED AND PRESSURE DRESSED. PT EDCUATED ABOUT D/C MEDCIATIONS, RESITRICTIONS, AND FOLLOW-UPs. HE EXPRESSED UNDERSTANDING OF TEACHING AND DENIES FURTHER NEEDS. PT WAS PROVIDED WITH A HAND WRITTEN RX FOR [place]CO THAT HE WAS INSTRUCTED TO FILL AT PHARMACY. OTHERWISE MEDCIATIONS WERE SENT TO [facility] PER HIS REQUEST
[2024-04-02] MEDS ORDERED: LACT (13:18)
[2024-04-02] MEDS ORDERED: PANT40 PO (13:19)
[2024-04-02] MEDS ORDERED: VISBIOME 112.51 EACH PO (13:19)
[2024-04-02] MEDS ORDERED: AMOCLA875 PO (13:19)
[2024-04-02] MEDS ORDERED: METO100ER PO (13:19)
[2024-04-02] MEDS ORDERED: HYDR1TAB94 PO (13:22)
[2024-04-03] MEDS ORDERED: Metoprolol Succinate 50 MG TABCR PO SCH (08:00)
== END 2024-04-02 14:00 | disposition home or self-care (01) | DRG 327 ==
LOC: ER 08:00 → SURS 08:08 → PCU 03-29 09:10 → SURS 03-29 09:10 → ICUE 03-30 20:35 → PCU 03-31 04:53
PROVIDERS: Emergency Medicine; Family Medicine; Hospitalist; Internal Medicine; Surgery; ADMIT Internal Medicine
PROC: 0DQ90ZZ Repair Duodenum, Open Approach (ICD-10-PCS; principal; 2024-03-28 11:30)
DX: K26.5 Chronic or unspecified duodenal ulcer with perforation (principal); E87.1 Hypo-osmolality and hyponatremia; I69.354 Hemiplegia and hemiparesis following cerebral infarction affecting left non-dominant side; N17.9 Acute kidney failure, unspecified; J90 Pleural effusion, not elsewhere classified; J98.11 Atelectasis; K21.9 Gastro-esophageal reflux disease without esophagitis; I10 Essential (primary) hypertension; K44.9 Diaphragmatic hernia without obstruction or gangrene; I25.10 Atherosclerotic heart disease of native coronary artery without angina pectoris; Z98.890 Other specified postprocedural states; Z79.82 Long term (current) use of aspirin; Z79.899 Other long term (current) drug therapy; F17.290 Nicotine dependence, other tobacco product, uncomplicated
CPT/HCPCS: 36415; 71260; 74177; 74240; 76937; 80048; 80053; 81001; 82947; 83605; 83690; 83735; 83880; 84484; 85025; 85027; 85520; 85610; 85730; 86850; 86900; 86901; 93005; 93010; 93306; 93458; 94760; 94762; 96361; 96365-59; 96366; 96367; 96375; 96376; 97116; 97162; 99152; 99285-25; A9270; C1769; C1887; C1894; G0378; J0360; J1100; J1644; J2250; J2270; J2405; J2470; J2543; J2704; J2765; J3010; J3480; J7030; J7050; J7120; Q9967